=== PATIENT | female | born 1985 | race Caucasian/White ===

== ENCOUNTER → 2017-01-04 | Outpatient (REF) | payer BC | LOC: M SFHCWAGY 11:04 | PROVIDERS: ATTEND Nurse Practitioner Women's Health | DX: Z12.4 Encounter for screening for malignant neoplasm of cervix (principal) ==

== ENCOUNTER → 2017-09-01 | Outpatient (CLI) | payer BC ==
[2017-09-01 13:03] LABS: BASO % 0.5 % (0.0-1.0); EOS # 0.1 10^3/uL (0.0-0.50); IMMATURE GRANULOCYTE % 0.4 % (0-0); LYMPH # 1.7 10^3/uL (1.5-4.5); LYMPH % 21.1 % (24.0-44.0); MEAN CORPUSCULAR HEMOGLOBIN 26.2 pg (27.0-33.0); MEAN CORPUSCULAR HGB CONC 32.8 g/dl (32.0-36.5); MONO # 0.8 10^3/uL (0.0-0.8); MONO % 9.5 % (0.0-5.0); NEUTROPHILS # 5.6 10^3/uL (1.8-7.7); NEUTROPHILS % 67.5 % (36.0-66.0); PLATELET COUNT, AUTOMATED 255 10^3/uL (150-450); RED CELL DISTRIBUTION WIDTH 13.4 % (11.5-14.5); WHITE BLOOD COUNT 8.3 10^3/uL (4.0-10.0)
[2017-09-02 10:24] LABS: HBsAg Prenatal NEGATIVE (NEGATIVE)
== END ==
LOC: M SMT 08:41
PROVIDERS: ATTEND Advanced Practice Midwife
DX: Z34.81 Encounter for supervision of other normal pregnancy, first trimester (principal); Z3A.09 9 weeks gestation of pregnancy

== ENCOUNTER → 2017-10-28 | Outpatient (CLI) | payer BC | LOC: M SMT 08:40 | DX: Z13.79 Encounter for other screening for genetic and chromosomal anomalies (principal) | CPT/HCPCS: 36415 ==

== ENCOUNTER → 2017-11-03 | Outpatient (CLI) | payer BC | LOC: M SMT 12:51 | DX: Z36.89 Encounter for other specified antenatal screening (principal); Z3A.18 18 weeks gestation of pregnancy | CPT/HCPCS: 76811 ==

== ENCOUNTER → 2017-12-26 | Outpatient (CLI) | payer BC ==
[2017-12-26 13:37] LABS: BASO % 0.3 % (0.0-1.0); EOS # 0.1 10^3/uL (0.0-0.50); EOS % 0.8 % (0.0-3.0); HEMATOCRIT 35.9 % (36.0-47.0); HEMOGLOBIN 11.5 g/dl (12.0-15.5); IMMATURE GRANULOCYTE % 1.3 % (0-3.0); LYMPH # 2.1 10^3/uL (1.5-4.5); LYMPH % 16.3 % (24.0-44.0); MEAN CORPUSCULAR HEMOGLOBIN 25.6 pg (27.0-33.0); MEAN CORPUSCULAR VOLUME 79.8 fl (80.0-96.0); MONO % 7.7 % (0.0-5.0); NEUTROPHILS # 9.6 10^3/uL (1.8-7.7); NEUTROPHILS % 73.6 % (36.0-66.0); PLATELET COUNT, AUTOMATED 217 10^3/uL (150-450)
[2017-12-27 08:42] LABS: WHITE BLOOD COUNT 13.1 10^3/uL (4.0-10.0)
[2017-12-27 08:43] LABS: GLUCOSE CHALLENGE TEST 1 HOUR 89 MG/DL (LESS THAN 140)
== END ==
LOC: M SMT 08:01
DX: Z34.82 Encounter for supervision of other normal pregnancy, second trimester (principal)
CPT/HCPCS: 82950

== ENCOUNTER → 2018-03-07 | Outpatient (REF) | payer BC | LOC: M LAB REF 12:55 | DX: Z34.83 Encounter for supervision of other normal pregnancy, third trimester (principal) | CPT/HCPCS: 87081 ==

== ENCOUNTER 2018-04-04 04:49 | Outpatient (CLI) | payer BC | END 2018-04-04 08:40 | disposition home or self-care (01) | LOC: M LDO 04:49 | DX: O47.1 False labor at or after 37 completed weeks of gestation (principal); Z3A.40 40 weeks gestation of pregnancy; E86.0 Dehydration; O99.283 Endocrine, nutritional and metabolic diseases complicating pregnancy, third trimester | CPT/HCPCS: 59025 ==

== ENCOUNTER 2018-04-04 18:07 | Inpatient (IN) | payer BC ==
[2018-04-04] MEDS: LR 1,000 ML IV (19:56)
[2018-04-04] MEDS: ONDANSETRON 4MG/2ML VIAL (J2405) IV (20:23)
[2018-04-04] MEDS: PROMETHAZINE INJ 25 MG/ML VIAL (J2550) IV (20:23)
[2018-04-04] MEDS: BUTORPHANOL 2 MG/ML INJ (J0595) IV (20:24)
[2018-04-04] MEDS: OXYTOCIN DRIP 30 UNITS in APPROPRIATE DILUENT 1 EA IV (20:28)
[2018-04-04 20:34] LABS: HEMATOCRIT 40.9 % (36.0-47.0); HEMOGLOBIN 13.5 g/dl (12.0-15.5); MEAN CORPUSCULAR HEMOGLOBIN 25.9 pg (27.0-33.0); MEAN CORPUSCULAR VOLUME 78.5 fl (80.0-96.0); PLATELET COUNT, AUTOMATED 203 10^3/uL (150-450); RED BLOOD COUNT 5.21 10^6/uL (4.00-5.40); RED CELL DISTRIBUTION WIDTH 13.7 % (11.5-14.5); WHITE BLOOD COUNT 16.5 10^3/uL (4.0-10.0)
[2018-04-04] MEDS ORDERED: FENTANYL 2MCG/ML ROPIVACAINE 0.2% IN 0.9% NACL 200ML IVBAG As Ordered (23:07)
[2018-04-04] MEDS ORDERED: EPIDURAL/PCA KEYS XX (23:45)
[2018-04-04] MEDS ORDERED: FENTANYL/ROPIVACAINE/NACL BAG 200 ML EPIDURAL (23:45)
[2018-04-04] MEDS ORDERED: REFRIGERATOR IV KEYS XX (23:45)
[2018-04-04] MEDS ORDERED: LACTATED RINGER'S 1000 ML IV (23:45)
[2018-04-04] MEDS ORDERED: diphenhydrAMINE INJ 50MG/ML VIAL (J1200) IV (23:45)
[2018-04-04] MEDS ORDERED: EPIDURAL COMMENT XX (23:45)
[2018-04-04] MEDS ORDERED: NALOXONE INJ 0.4 MG/1 ML VIAL (J2310) IV (23:45)
[2018-04-04] MEDS ORDERED: ePHEDrine SULFATE 25 MG/5 ML(5MG/ML) SYRINGE IV (23:45)
[2018-04-05 03:39] LABS: CORD GAS HCO3 V 27.5 MEQ/L; CORD GAS PCO2 V 68.3 mmHg; CORD GAS PH V 7.223 UNITS; CORD GAS PO2 V 12.6 mmHg; CORD GAS SBC V 20.9 MEQ/L; CORD GAS TCO2 V 29.6 MEQ/L
[2018-04-05 03:42] LABS: CORD GAS HCO3 A 24.2 MEQ/L; CORD GAS O2 SAT A 16.1 %; CORD GAS PCO2 A 69.1 mmHg; CORD GAS PH A 7.162 UNITS; CORD GAS PO2 A 13.1 mmHg; CORD GAS SBC A 17.8 MEQ/L; CORD GAS TCO2 A 26.3 MEQ/L
[2018-04-05] MEDS ORDERED: OXYTOCIN DRIP 30 UNITS in APPROPRIATE DILUENT 1 EA IV (05:11)
[2018-04-05] MEDS ORDERED: RHOGAM 300 MCG (1500 IU) INJ (J2790) IM (05:15)
[2018-04-05] MEDS ORDERED: MEASLES,MUMPS,RUBELLA VACCINE INJ (MMR-II) (90707) SC (05:15)
[2018-04-05] MEDS ORDERED: ACETAMINOPHEN 500 MG TAB PO (05:15)
[2018-04-05] MEDS ORDERED: METHYLERGONOVINE MALEATE 0.2 MG TAB PO (05:15)
[2018-04-05] MEDS ORDERED: ANUSOL HC CREAM 30GM TOP (05:15)
[2018-04-05] MEDS ORDERED: DIBUCAINE 1% OINTMENT 30GM TOP (05:15)
[2018-04-05] MEDS: AMPICILLIN SOD/SULBACTAM SOD 3 GM in D5W MINI-BAG PLUS 100 ML IV (07:45)
[2018-04-05] MEDS: PRENATAL VITAMINS CHEWABLE TABLET PO (07:47)
[2018-04-05] MEDS: IBUPROFEN 800 MG TAB PO (17:37)
[2018-04-05] MEDS: DOCUSATE SODIUM 100 MG CAP PO (19:45)
[2018-04-06] MEDS: PRENATAL VITAMINS CHEWABLE TABLET PO (09:00)
[2018-04-06] MEDS: DOCUSATE SODIUM 100 MG CAP PO (20:47)
[2018-04-07] MEDS: PRENATAL VITAMINS CHEWABLE TABLET PO (08:20)
== END 2018-04-07 09:57 | disposition home or self-care (01) | DRG 541 ==
LOC: M LDO 18:07 → M OBS 04-05 07:19 → M LDI 19:59
PROVIDERS: Advanced Practice Midwife
PROC: 10E0XZZ Delivery of Products of Conception, External Approach (ICD-10-PCS; principal; 2018-04-05)
PROC: 0KQM0ZZ Repair Perineum Muscle, Open Approach (ICD-10-PCS; 2018-04-05)
PROC: 10D17Z9 Manual Extraction of Products of Conception, Retained, Via Natural or Artificial Opening (ICD-10-PCS; 2018-04-05)
DX: O48.0 Post-term pregnancy (principal); O70.1 Second degree perineal laceration during delivery; Z37.0 Single live birth; Z3A.40 40 weeks gestation of pregnancy

== ENCOUNTER → 2018-12-15 | Outpatient (REF) | payer BC ==
[~2018-12-15] MED LIST: BENA25CA4 PO; IBUP-1114 PO; MAPA500T2 PO; PRENTAB9 PO; RANI15TA PO
== END ==
LOC: M SFHCWAGY 08:46
PROVIDERS: ATTEND Nurse Practitioner Women's Health
DX: Z12.4 Encounter for screening for malignant neoplasm of cervix (principal)

== ENCOUNTER → 2019-12-20 | Outpatient (CLI) | payer BC ==
--- NOTE | 2019-12-20 14:27 | REP ---
OB ULTRASOUND: Real-time sonographic evaluation of the gravid uterus is performed. There is a single living intrauterine gestation. The estimated gestational age is 8 weeks 0 days based on a crown-rump length of 16 mm, EDC 07/31/2020. Cervical length is approximately 3.2 cm. heart rate is 165 beats per minute. Subchorionic hemorrhage is seen measuring 2.5 x 0.7 x 1.0 cm. Cystic structure left ovary measures 3.8 x 4.2 x 3.7 cm. This may represent a corpus luteum. There is no evidence of a left ovarian torsion with duplex Doppler evaluation.
== END ==
LOC: M WHC 10:50
PROVIDERS: ATTEND Advanced Practice Midwife
DX: Z34.81 Encounter for supervision of other normal pregnancy, first trimester (principal); Z3A.08 8 weeks gestation of pregnancy

== ENCOUNTER → 2019-12-20 | Outpatient (REF) | payer BC ==
[2019-12-20 13:33] LABS: HEMATOCRIT 41.5 % (36.0-47.0); HEMOGLOBIN 13.3 g/dl (12.0-15.5); MEAN CORPUSCULAR HEMOGLOBIN 25.8 pg (27.0-33.0); MEAN CORPUSCULAR VOLUME 80.6 fl (80.0-96.0); PLATELET COUNT, AUTOMATED 268 10^3/uL (150-450); RED BLOOD COUNT 5.15 10^6/uL (4.00-5.40); WHITE BLOOD COUNT 10.2 10^3/uL (4.0-10.0)
[2019-12-21 09:15] LABS: HEPATITIS B SURFACE ANTIGEN NEGATIVE (NEGATIVE); HEPATITIS C VIRUS ABY INDEX 0.1 INDEX (<0.8); HIV 1&2 SCREEN CENTAUR NEGATIVE (NEGATIVE); RUBELLA IgG QUALITATIVE IMMUNE (IMMUNE)
== END ==
LOC: M PLALAB 10:13
PROVIDERS: ATTEND Advanced Practice Midwife
DX: Z34.81 Encounter for supervision of other normal pregnancy, first trimester (principal)

== ENCOUNTER → 2020-01-07 | Outpatient (CLI) | payer BC | LOC: M PLALAB 15:48 | PROVIDERS: ATTEND Advanced Practice Midwife | DX: O09.521 Supervision of elderly multigravida, first trimester (principal) ==

== ENCOUNTER → 2020-01-29 | Outpatient (REF) | payer BC ==
[2020-01-29 17:08] LABS: CHLAMYDIA DNA AMPLIFICATION NEGATIVE (NEGATIVE); GC DNA AMPLIFICATION NEGATIVE (NEGATIVE)
== END ==
LOC: M SFHCWAGY 14:43
PROVIDERS: ATTEND Advanced Practice Midwife
DX: O09.521 Supervision of elderly multigravida, first trimester (principal)

== ENCOUNTER → 2020-03-13 | Outpatient (CLI) | payer BC ==
--- NOTE | 2020-03-13 10:39 | REP ---
Clinical: Anatomical evaluation. Comparison: 12/20/2019 . Findings: Examination demonstrates a single live intrauterine in transverse (head to maternal left) presentation. motion is identified by technologist. Placenta is noted posterior and grade zero without evidence for placenta previa or abruption. Amniotic fluid volume is normal. Cervix measures 4.0 cm in length and appears closed. No evidence for nuchal cord. Gestational age by LMP 21 weeks 0 days with KARYNA 07/24/2020 . Gestational age by current measurements 20 weeks 0 days with KARYNA 07/31/2020 . FHR equals 152 beats per minute. BPD 4.9 cm 20 weeks 5 days HC 17.8 cm 20 weeks 2 days AC 14.6 cm 19 weeks 6 days FL 3.3 cm 20 weeks 2 days HL 3.1 cm 20 weeks 3 days HC/AC ratio 1.22 Estimated weight 133 grams ( 54th percentile). Anatomical assessment demonstrates normal structures including cranium, choroid plexus, cavum, cerebellum/posterior fossa, diaphragm, stomach, cord insertion/three-vessel cord, kidneys/bladder, spine, and extremities. Impression: 1. Single live intrauterine in transverse lie demonstrating appropriate interval growth. 2. Limited evaluation of the facial features and heart/ventricular outflow tracts may warrant reevaluation and follow-up.
== END ==
LOC: M WHC 09:03
PROVIDERS: ATTEND Advanced Practice Midwife
DX: O09.522 Supervision of elderly multigravida, second trimester (principal); Z3A.13 13 weeks gestation of pregnancy

== ENCOUNTER → 2020-04-22 | Outpatient (CLI) | payer BC ==
--- NOTE | 2020-06-06 10:55 | REP ---
OBSTETRIC ULTRASOUND FOR FOLLOW-UP OF ANATOMY Delay in reporting results from hospital computer system malfunction from malware/ ransomware. The anatomy ultrasound dated 03/13/2020 could not optimally demonstrate the four chamber view of the heart, cardiac ventricular outflow tracts, facial profile, or upper lip. The study today is for follow-up of these anatomic structures. FINDINGS: There is a single intrauterine gestation in an oblique lie with the head in the uterine left lower quadrant. On the study today, the four chamber view of the heart, cardiac right and left ventricular outflow tracts, facial profile, and upper lip are adequately demonstrated and are unremarkable. The remainder of the anatomy was adequately demonstrated previously and is not repeated. heart rate is 139 beats per minute. Composite gestational age by the study today is 26 weeks 2 days. Gestational age by last menstrual period (LMP) is 25 weeks 5 days. Estimated date of delivery (KARYNA) based on LMP is 07/31/2020. Cervix measures 4.1 cm in length. Subjectively the amniotic fluid volume is normal. heart rate is 139 beats per minute. Estimated weight is 860 grams. This is the 44th percentile. MTDD
== END ==
LOC: M WHC 06:29
PROVIDERS: ATTEND Nurse Practitioner Women's Health
DX: O09.512 Supervision of elderly primigravida, second trimester (principal); Z3A.25 25 weeks gestation of pregnancy

== ENCOUNTER → 2020-04-24 | Outpatient (REF) | payer BC ==
[2020-05-29 07:22] LABS: HEMATOCRIT 38.7 % (36.0-47.0); HEMOGLOBIN 12.4 g/dl (12.0-15.5); MEAN CORPUSCULAR HEMOGLOBIN 26.1 pg (27.0-33.0); MEAN CORPUSCULAR VOLUME 81.3 fl (80.0-96.0); PLATELET COUNT, AUTOMATED 157 10^3/uL (150-450); RED BLOOD COUNT 4.76 10^6/uL (4.00-5.40); WHITE BLOOD COUNT 10.1 10^3/uL (4.0-10.0)
== END ==
LOC: M SFHCWAGY 11:19
PROVIDERS: ATTEND Nurse Practitioner Women's Health
DX: O09.512 Supervision of elderly primigravida, second trimester (principal); Z3A.00 Weeks of gestation of pregnancy not specified

== ENCOUNTER → 2020-07-01 | Outpatient (REF) | payer BC | LOC: M SFHCWAGY 09:50 | PROVIDERS: ATTEND Advanced Practice Midwife | DX: O09.529 Supervision of elderly multigravida, unspecified trimester (principal) ==

== ENCOUNTER 2020-08-01 11:02 | Inpatient (IN) | payer BC ==
[2020-08-01] VITALS (25 sets, daily range): BP systolic 87–169; BP diastolic 53–102
[~2020-08-01] VITALS: Ht 175.3 cm; Wt 94.8 kg
[2020-08-01] MEDS ORDERED: GNP250TA9 PO (11:26)
[2020-08-01] MEDS ORDERED: OMEP10CASR PO (11:26)
[2020-08-01] MEDS ORDERED: LACTATED RINGER'S 1000 ML IV STA (11:27)
[2020-08-01 12:37] LABS: HEMATOCRIT 41.1 % (36.0-47.0); HEMOGLOBIN 12.7 g/dl (12.0-15.5); MEAN CORPUSCULAR HEMOGLOBIN 24.8 pg (27.0-33.0); MEAN CORPUSCULAR HGB CONC 30.9 g/dl (32.0-36.5); MEAN CORPUSCULAR VOLUME 80.1 fl (80.0-96.0); PLATELET COUNT, AUTOMATED 170 10^3/uL (150-450); RED BLOOD COUNT 5.13 10^6/uL (4.00-5.40); WHITE BLOOD COUNT 9.4 10^3/uL (4.0-10.0)
[2020-08-01 13:01] LABS: TOTAL PROTEIN,RANDOM URINE 27.7 MG/DL (0.0-12.0)
[2020-08-01 13:03] LABS: ALT/SGPT 18 U/L (12-78); BILIRUBIN,TOTAL 0.3 MG/DL (0.2-1.0); CREATININE FOR GFR 0.63 MG/DL (0.55-1.30); GLOMERULAR FILTRATION RATE > 60.0 (>60); LDH LACTATE DEHYDROGENASE 188 U/L (84-246); URIC ACID 4.2 MG/DL (2.6-6.0)
--- NOTE | 2020-08-01 13:33 | HPEPDOC ---
Obstetrical History & Physical General Date of Admission Aug 01, 2020 at 11:02 History of Present Illness Chief Complaint: Induction of labor (AMA and mild hypertension) Information Provided By: Patient Age: 35 : 2 Term: 1 Pre-term: 0 Livin Care Care: Good Care Dating Final EDC: Jul 31, 2020 Final EDC by: 1st trimester (US) EGA at Admission: 40 (+1) Antepartum Course Pre- weight (lbs.): 175 (first PN visit) Admission Weight (lbs.): 211 Past Medical History Past Obstetrical History : Past Obstetrical History: Primgravida (2018) Type of Delivery: Spontaneous Vaginal Del. 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 Past Medical History Surgical History: Tonsilectomy (adnoids) Family History Significant Family History: Cancer (colon, breast) Social History Marital Status: Family situation: Spouse/partner home Psychosocial History: No pertinent psych hx * Smoker: non-smoker Alcohol: Denies Drugs: denies Abuse Violence Screening Have you been hit/kicked/slapp: No Have you been sexually assault: No Imunizations Tdap status: current Allergies Coded Allergies: No Known Allergies (Unverified , 04/04/18) Medications Scheduled Magnesium Oxide (Magnesium) 250 Mg Tablet, 250 MG PO DAILY Omeprazole (Omeprazole) 10 Mg Capsule.dr, 20 MG PO DAILY No.137/Iron/Folic Acd ( Vitamin Tablet) 1 Tab Tab, 1 TAB PO DAILY Scheduled PRN Acetaminophen (Mapap) 500 Mg Tab, 1,000 MG PO Q6HP PRN for MILD PAIN (PS 1-4) Physical Examination Physical Examination GENERAL: Alert and oriented times three. BREAST: . ABDOMEN: Gravid and non-tender to touch. FETUS: Is vertex (VTX) by sterile vaginal examination (SVE), fetus is vertex (VTX) by Ian. EFW 8# HEART RATE: Regular rate and rhythm. LUNGS: Clear to auscultation (CTA). EXTREMITIES: No edema. No clonus. Deep tendon reflexes (DTRs) + 2. Vital Signs/I&O Vital Signs Date Time Temp Pulse Resp B/P (MAP) Pulse Ox O2 Delivery O2 Flow Rate FiO2 08/01/20 11:44 97.5 82 18 131/76 (94) 96 Room Air Laboratory Data 24H LABS Laboratory Tests 2 08/01/20 11:38: Serology Scanned Report Hepatitis B Testing 08/01/20 12:08: Nucleated Red Blood Cells % (auto) 0.0, Urine Random Creatinine 190.0, Urine Random Total Protein 27.7H, Glomerular Filtration Rate > 60.0, Uric Acid 4.2, Total Bilirubin 0.3, Aspartate Amino Transf (AST/SGOT) 16, Alanine Aminotransferase (ALT/SGPT) 18, Lactate Dehydrogenase 188 CBC/BMP Laboratory Tests 08/01/20 12:08 Pertinent Laboratoy Data Blood Type: AB+ RBC Antibody Screen: Negative HIV: Negative Hepatitis B: Negative Hepatitis C: Negative Rapid Plasma Reagin: Nonreactive Rubella: Immune Chlamydia/Gonorrhea: Negative Group B Streptococcus: Negative Quad Screen Test: Unknown (NIPT low risk ) Glucose Tolerance Test: 70 Diag/Inter Therapy Panorama low risk Anatomy Ultrasound Ultrasound Date: Mar 13, 2020 Placenta Location: Posterior Normal Anatomy: Yes Placenta Previa: No Estimated Weight (grams): 133 (54%) Other Ultrasounds 12/20/2019 dating KARYNA 07/31/2020 04/22/2020 f/u anatomy, normal cardiac anatomy. EFW 860gm 44% 07/01/2020 vertex Steroid Therapy Steroid Therapy: No Vaginal Examination Dilation: 1cm Effacement: 50% Station: -3 Cervical Consistency: Medium Cervical Position: Posterior Presentation: Cephalic presentation Assessment Heart Rate (FHR): 120 Variability: Moderate Accelerations: Positive Decelerations: None Tocometer Contractions: No Assessment/Plan Assessment Melissa is a 35-year-old (G)2 para (P)1-0-0-1 at 40+1 weeks by 8-week ultrasound. Presents to Labor and Delivery (L&D) for induction of labor. Office visit 07/31/2020 showed mild elevation of baseline blood pressures (138/76) vs baseline of 110/64.She also reported mild headache with blurry vision. 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 Labs and intravenous (IV) per unit protocol. Counseled on misoprostol, Pitocin and induction of labor (IOL). Lactated Ringers (LR): Bolus 500 mL, then saline lock. Considering epidural for labor coping. Anticipate normal spontaneous delivery (). C-S as appropriate. Jazzmine Calhoun CNM Aug 01, 2020 13:08
[2020-08-01] MEDS ORDERED: miSOPROStol 50 MCG 1/2 TAB (S0191) PO SCH (14:00)
--- NOTE | 2020-08-01 17:05 | IPNPDOC ---
Text Note Date of Service The patient was seen on 08/01/20. NOTE Progress FH Cat I baseline 120 UC irregular, reports "cramps"SVE /-1, posterior Cooks catheter placed, inflated with 60/40cc NS Will start pitocin after dinner VS,Fishbone, I+O VS, Fishbone, I+O Laboratory Tests 08/01/20 12:08 Vital Signs Date Time Temp Pulse Resp B/P (MAP) Pulse Ox O2 Delivery O2 Flow Rate FiO2 08/01/20 16:01 97.7 76 133/79 (97) 08/01/20 12:46 18 08/01/20 11:44 96 Room Air Jazzmine Calhoun CNM Aug 01, 2020 17:05
[2020-08-01] MEDS ORDERED: LR 1,000 ML IV SCH (17:07)
[2020-08-01] MEDS ORDERED: OXYTOCIN DRIP 30 UNITS in IV 1 EA IV SCH (17:15)
[2020-08-01] MEDS ORDERED: FENTANYL 2MCG/ML ROPIVACAINE 0.2% IN 0.9% NACL 100ML IVBAG As Ordered ONE (21:29)
--- NOTE | 2020-08-01 22:58 | IPNPDOC ---
Text Note Date of Service The patient was seen on 08/01/20. NOTE Progress Comfortable with epidural UC 2-3 minutes x 60 seconds FH 130, Cat I, occasional early decels SVE 5/90/-1, midline, BBOW Continue induction. VSS VS,Fishbone, I+O VS, Fishbone, I+O Laboratory Tests 08/01/20 12:08 Vital Signs Date Time Temp Pulse Resp B/P (MAP) Pulse Ox O2 Delivery O2 Flow Rate FiO2 08/01/20 22:40 78 18 127/77 (94) 08/01/20 22:19 97.3 08/01/20 11:44 96 Room Air Jazzmine Calhoun CNM Aug 01, 2020 22:57
[2020-08-01] MEDS ORDERED: ePHEDrine SULFATE 25 MG/5 ML(5MG/ML) SYRINGE As Ordered ONE (23:28)
[2020-08-01] MEDS ORDERED: LACTATED RINGER'S 1000 ML IV PRN (23:30)
[2020-08-01] MEDS ORDERED: ePHEDrine SULFATE 25 MG/5 ML(5MG/ML) SYRINGE IV PRN (23:30)
[2020-08-01] MEDS ORDERED: diphenhydrAMINE 50MG/ML VIAL (J1200) IV PRN (23:30)
[2020-08-01] MEDS ORDERED: REFRIGERATOR IV KEYS XX PRN (23:30)
[2020-08-01] MEDS ORDERED: NALOXONE INJ 0.4MG/1ML VIAL (J2310 PER 1MG) IV PRN (23:30)
[2020-08-01] MEDS ORDERED: EPIDURAL COMMENT XX SCH (23:30)
[2020-08-01] MEDS ORDERED: ONDANSETRON 4MG/2ML VIAL IV PRN (23:30)
[2020-08-01] MEDS ORDERED: FENTANYL/ROPIVACAINE/NACL BAG 100 ML EPIDURAL SCH (23:30)
[2020-08-01] MEDS ORDERED: EPIDURAL/PCA KEYS XX PRN (23:30)
[2020-08-02] VITALS (10 sets, daily range): BP systolic 108–133; BP diastolic 53–93
[2020-08-02] MEDS ORDERED: OXYTOCIN DRIP 30 UNITS in IV 1 EA IV SCH (00:26)
[2020-08-02] MEDS ORDERED: ACETAMINOPHEN TAB 650MG DOSE (2X325MG) PO PRN (00:30)
[2020-08-02] MEDS ORDERED: MEASLES,MUMPS,RUBELLA VACCINE INJ (MMR-II) (90707) SC SCH (00:30)
[2020-08-02] MEDS ORDERED: ANUSOL HC CREAM 30GM TOP PRN (00:30)
[2020-08-02] MEDS ORDERED: DOCUSATE SODIUM 100 MG CAP PO PRN (00:30)
[2020-08-02] MEDS ORDERED: ACETAMINOPHEN 500 MG TAB PO PRN ×2 (00:30)
[2020-08-02] MEDS ORDERED: IBUPROFEN 600MG TAB PO PRN (00:30)
[2020-08-02] MEDS ORDERED: MOM 30ML SUSPENSION UDC PO PRN (00:30)
[2020-08-02] MEDS ORDERED: RHOGAM 300 MCG (1500 IU) INJ (J2790) IM SCH (00:30)
[2020-08-02] MEDS ORDERED: BENZOCAINE 20% HEMORRHOIDAL OINTMENT 28GM TUBE TOP PRN (00:30)
[2020-08-02] MEDS ORDERED: METHYLERGONOVINE MALEATE 0.2 MG TAB PO PRN (00:30)
--- NOTE | 2020-08-02 00:36 | DNPDOC ---
[facility] Delivery Note Delivery Note DATE OF DELIVERY: 08/01/2020 PREDELIVERY DIAGNOSIS: 40+1/7 weeks' gestation and labor. POST DELIVERY DIAGNOSIS: Delivered. PROCEDURE: Spontaneous vaginal delivery. PROVIDER: Jazzmine Calhoun CNM ANESTHESIA: Epidural. ESTIMATED BLOOD LOSS: 250 mL. FINDINGS: 8 pound 0 ounce, 3620gm female infant, Score 8/9, no nuchal cord. DELIVERY SUMMARY: Patient is a 35-year-old 2 now para 2-0-0-2 who was admitted to labor and delivery for induction of labor due to AMA and mild hypertension. She received one dose misoprostol followed by cooks catheter and pitocin. She utilized an epidural for labor coping. AROM clear fluid at introitus 2353. Fully dilated 2354. Viable female delivered EVELINA without difficulty @ 2357. Spontaneous respirations, transitioned on maternal abdomen. Cord doubly clamped and cut by FOB under my direction once pulsations ceased. Apgars 8/9. Placenta delivered bell, intact with 3v cord @ 0007. Fundus firme d with massage and IV pitocin bolus. EBL 250ml. Cervix vagina and perineum inspected. 1st degree perineal laceration repaired in usual fashion with 3-0 vicryl rapide. Sponge, sharp and instrument count correct. Jazzmine Calhoun CNM Aug 02, 2020 00:36
--- NOTE | 2020-08-02 07:06 | IPNPDOC ---
Text Note Date of Service The patient was seen on 08/02/20. NOTE Progress Feels well. Adequate pain management. . Voiding VSS, afebrile, normotensive Breasts soft, nipples intact Fundus firm, NT, down 1 FB Lochia rubra light without odor Perineum well approximated without edema PP #1 Routine care. Anticipate D/C in am VS,Fishbone, I+O VS, Fishbone, I+O Laboratory Tests 08/01/20 12:08 Vital Signs Date Time Temp Pulse Resp B/P (MAP) Pulse Ox O2 Delivery O2 Flow Rate FiO2 08/02/20 06:00 97.7 80 16 116/64 (81) 08/01/20 11:44 96 Room Air I&O- Last 24 Hours up to 6 AM 08/02/20 05:59 Intake Total 3341.5 ml Output Total 1050 ml Balance 2291.5 ml Jazzmine Calhoun CNM Aug 02, 2020 07:06
[2020-08-02] MEDS: PRENATAL VITAMINS CHEWABLE TABLET PO SCH (07:41)
[2020-08-02] MEDS: IBUPROFEN 800 MG TAB PO PRN ×2 (07:41→22:09)
[2020-08-02] MEDS ORDERED: PRENATAL VITAMINS CHEWABLE TABLET PO SCH (09:00)
[2020-08-03 06:00] VITALS: BP 118/61
[2020-08-03] MEDS: PRENATAL VITAMINS CHEWABLE TABLET PO SCH (08:03)
[2020-08-03] MEDS: IBUPROFEN 800 MG TAB PO PRN (08:04)
[2020-08-03] MEDS ORDERED: IBUP80TA PO (09:05)
== END 2020-08-03 14:20 | disposition home or self-care (01) | DRG 560 ==
LOC: M LDI 11:02 → M OBS 08-02 01:57
PROVIDERS: ADMIT Advanced Practice Midwife; ATTEND Advanced Practice Midwife
PROC: 10E0XZZ Delivery of Products of Conception, External Approach (ICD-10-PCS; principal; 2020-08-01)
PROC: 10907ZC Drainage of Amniotic Fluid, Therapeutic from Products of Conception, Via Natural or Artificial Opening (ICD-10-PCS; 2020-08-01)
PROC: 0HQ9XZZ Repair Perineum Skin, External Approach (ICD-10-PCS; 2020-08-01)
PROC: 3E033VJ Introduction of Other Hormone into Peripheral Vein, Percutaneous Approach (ICD-10-PCS; 2020-08-01)
DX: O13.4 Gestational [pregnancy-induced] hypertension without significant proteinuria, complicating childbirth (principal); O48.0 Post-term pregnancy; Z37.0 Single live birth; Z3A.40 40 weeks gestation of pregnancy; O09.523 Supervision of elderly multigravida, third trimester; O70.0 First degree perineal laceration during delivery

== ENCOUNTER → 2022-08-29 | Outpatient (REF) | payer OTHER ==
[~2022-08-29] MED LIST changes: +GNP250TA9 PO; +IBUP80TA PO; +OMEP10CASR PO
== END ==
LOC: M WUC 17:31
PROVIDERS: ATTEND Physician Assistant
DX: J02.9 Acute pharyngitis, unspecified (principal)

== ENCOUNTER → 2022-11-30 | Outpatient (REF) | payer OTHER | LOC: M SFHCWAGY 16:57 | PROVIDERS: ATTEND Advanced Practice Midwife | DX: Z12.4 Encounter for screening for malignant neoplasm of cervix (principal) | CPT/HCPCS: 87624; G0123 ==

== ENCOUNTER → 2023-04-27 | Outpatient (REF) | payer OTHER | LOC: M LAB REF 09:26 | PROVIDERS: ATTEND Student in an Organized Health Care Education/Training Program | DX: J02.9 Acute pharyngitis, unspecified (principal) ==

== ENCOUNTER → 2023-05-12 | Outpatient (REF) | payer OTHER ==
[2023-05-12 12:56] LABS: HEMATOCRIT 40.6 % (36.0-47.0); HEMOGLOBIN 12.9 g/dl (12.0-15.5); MEAN CORPUSCULAR HEMOGLOBIN 25.5 pg (27.0-33.0); MEAN CORPUSCULAR HGB CONC 31.8 g/dl (32.0-36.5); MEAN CORPUSCULAR VOLUME 80.2 fl (80.0-96.0); PLATELET COUNT, AUTOMATED 250 10^3/uL (150-450); RED BLOOD COUNT 5.06 10^6/uL (4.00-5.40); WHITE BLOOD COUNT 5.9 10^3/uL (4.0-10.0)
[2023-05-12 12:59] LABS: ALBUMIN 3.8 G/DL (3.2-5.2); ALKALINE PHOSPHATASE 62 U/L (46-116); ALT/SGPT 17 U/L (7.0-40); AST/SGOT 10 U/L (<34); BILIRUBIN,TOTAL 0.4 MG/DL (0.3-1.2); BLOOD UREA NITROGEN 10 MG/DL (9-23); CALCIUM LEVEL 9.2 MG/DL (8.5-10.1); CARBON DIOXIDE LEVEL 30 MMOL/L (20-31); CHLORIDE LEVEL 105 MMOL/L (98-107); CREATININE FOR GFR 0.61 MG/DL (0.55-1.30); GLOMERULAR FILTRATION RATE > 60.0 (>60); GLUCOSE, FASTING 87 MG/DL (60-100); SODIUM LEVEL 140 MMOL/L (136-145); TOTAL PROTEIN 6.9 G/DL (5.7-8.2)
[2023-05-12 13:02] LABS: THYROID STIMULATING HORMONE 1.686 uIU/ML (0.55-4.78)
== END ==
LOC: M WUC 12:03
PROVIDERS: ATTEND Nurse Practitioner Adult Health
DX: Z00.00 Encounter for general adult medical examination without abnormal findings (principal); Z13.29 Encounter for screening for other suspected endocrine disorder

== ENCOUNTER → 2023-12-05 | Outpatient (REF) | payer OTHER | LOC: M SFHCWAGY 17:38 | PROVIDERS: ATTEND Advanced Practice Midwife | DX: Z12.4 Encounter for screening for malignant neoplasm of cervix (principal) | CPT/HCPCS: 87624; G0123 ==

== ENCOUNTER → 2025-09-09 | Outpatient (REF) | payer OTHER ==
[2025-09-11 14:43] LABS: HPV APTIMA Not Detected (Not Detected)
== END ==
LOC: M SFHCWAGY 17:21
PROVIDERS: ATTEND Advanced Practice Midwife
DX: Z12.4 Encounter for screening for malignant neoplasm of cervix (principal)
CPT/HCPCS: 87624; G0123

== ENCOUNTER → 2025-09-11 | Outpatient (CLI) | payer OTHER | LOC: M WHC 13:57 | PROVIDERS: ATTEND Advanced Practice Midwife | DX: Z53.9 Procedure and treatment not carried out, unspecified reason (principal) ==